=== PATIENT | female | born 1975 | race Caucasian/White ===

== ENCOUNTER 2017-11-18 10:53 | Emergency (ER) | payer MEDICAID ==
[2017-11-18] MEDS: IBUPROFEN 600 MG TAB PO (11:53)
[2017-11-18] MEDS: ONDANSETRON (ODT) 4 MG TAB ODT (11:54)
== END 2017-11-18 12:45 | disposition home or self-care (01) ==
LOC: FTE 10:53
DX: B34.9 Viral infection, unspecified (principal)
CPT/HCPCS: 99284; Z7502